=== PATIENT | female | born 1990 | race Caucasian/White ===

== ENCOUNTER → 2016-10-07 | Outpatient (CLI) | payer BC, OTHER ==
[~2016-10-07] MED LIST: /MOXI40TA PO; ACET65TA OR; BENA25TA4 PO; CELE-19 PO; CIPR500T89 PO; COLA100C2 OR; DICL13PA TD; DOXY100T16 PO; DULO30CA PO; FIOR1CAP PO; FLAG500T PO; IBUP600T OR; LANOLIN TOP; MILKSUS OR; MULTIVIT PO; NAPR250T2 PO; OXYC-517 PO; OXYC15TA76 PO; PRENTAB7 PO; ROBA750T4 PO; TIZA4CAP3 PO; TYLE325T5 PO; VICO5TAB PO; XANA0.5T PO; ZOFR4TAB3 PO; [UNRECOGNIZED DRUG - CODE] PO
== END ==
LOC: M SMT 10:43
PROVIDERS: ATTEND Specialist
DX: Z36 Encounter for antenatal screening of mother (principal)

== ENCOUNTER → 2016-12-06 | Outpatient (CLI) | payer BC, OTHER ==
--- NOTE | 2016-12-06 15:24 | REP ---
Clinical: Anatomical evaluation. Comparison: None . Findings: Examination demonstrates a single live intrauterine in transverse (head towards the maternal right side) presentation. motion is identified by technologist. Placenta is noted posteriorly and grade zero without evidence for placenta previa or abruption. Placental tip is 4.5 cm from the closed internal os. Amniotic fluid volume is normal. Cervix measures 3.0 cm in length and appears closed. No evidence for nuchal cord. Gestational age by LMP 19 weeks 0 days with KIM 05/02/2017 . Gestational age by current measurements 19 weeks 2 days with KIM 04/30/2017 . FHR equals 150 beats per minute. BPD 4.4 cm 19 weeks to be HC 16.7 cm 19 weeks 2 days AC 14.3 cm 19 weeks 5 days FL 3.0 cm 19 weeks 1 day HL 3.0 cm 19 weeks 5 days HC/AC ratio 1.17 Estimated weight 289 grams ( 61st percentile). Anatomical assessment demonstrates normal structures including cranium, choroid plexus, cavum, cerebellum/posterior fossa, facial features, lungs, four-chamber heart/ventricular outflow tracts, diaphragm, stomach, cord insertion/three-vessel cord, kidneys/bladder, and extremities. Impression: Single live intrauterine demonstrating appropriate interval growth. Limited evaluation of the spine. Remainder of the anatomical assessment is complete and normal. Signed by Say Llanos MD 12/06/2016 03:15 P
== END ==
LOC: M RAD 12:56
PROVIDERS: ATTEND Specialist
DX: Z34.82 Encounter for supervision of other normal pregnancy, second trimester (principal)

== ENCOUNTER → 2016-12-20 | Outpatient (CLI) | payer BC, OTHER ==
--- NOTE | 2016-12-20 15:53 | REP ---
Obstetric ultrasound for anatomy, follow-up evaluation of the spine: On the prior study of 12/06/2016. anatomy was normal except that the spine was not optimally demonstrated. There is a single intrauterine gestation in a vertex presentation. There is movement and cardiac activity, with a heart rate of 150 beats per minute. The placenta is posterior. There is no placenta previa or abruptio. The placenta demonstrates grade 1 maturity. The amniotic fluid volume subjectively is normal. The cervix is 3.3 cm in length. By the ultrasound today the gestational age is 21 weeks 2 days with an KIM of 04/30/2017. Based on the first ultrasound during this gestation the gestational age is 21 weeks 2 days. Gestational age by LMP is 21 weeks 0 days. weight is 341 grams (0 pounds, 15 ounces). This is the 65th percentile for 21 weeks 0 days. The spine is adequately demonstrated and unremarkable. The remainder of the anatomy is again unremarkable and unchanged from the prior study. Impression: There are no anomalies. Signed by Wesley Galvan MD 12/20/2016 03:45 P
== END ==
LOC: M RAD 14:29
PROVIDERS: ATTEND Specialist
DX: Z36 Encounter for antenatal screening of mother (principal); Z3A.21 21 weeks gestation of pregnancy

== ENCOUNTER → 2017-01-22 | Outpatient (REF) | payer OTHER, BC | LOC: M LAB REF 17:02 | PROVIDERS: ATTEND Advanced Practice Midwife | DX: Z34.82 Encounter for supervision of other normal pregnancy, second trimester (principal) ==

== ENCOUNTER → 2017-02-04 | Outpatient (CLI) | payer BC, OTHER ==
[2017-02-04 19:46] LABS: BASO % 0.2 % (0.0-1.0); EOS # 0.1 K/mm3 (0.0-0.50); EOS % 1.1 % (0.0-3.0); LARGE UNSTAINED CELL # 0.1 K/mm3 (0.0-0.4); LARGE UNSTAINED CELL % 1.3 % (0.0-4.0); LYMPH # 1.5 K/mm3 (1.5-6.5); LYMPH % 21.7 % (24.0-44.0); MEAN CORPUSCULAR HEMOGLOBIN 33.5 pg (27.0-33.0); MEAN CORPUSCULAR HGB CONC 36.1 g/dl (32.0-36.5); MEAN CORPUSCULAR VOLUME 92.7 fl (80.0-96.0); MONO # 0.3 K/mm3 (0.0-0.8); MONO % 4.6 % (0.0-5.0); NEUTROPHILS % 71.1 % (36.0-66.0); PLATELET COUNT, AUTOMATED 235 k/mm3 (150-450); RED CELL DISTRIBUTION WIDTH 12.4 % (11.5-14.5)
== END ==
LOC: M WUC 15:30
PROVIDERS: ATTEND Specialist
DX: Z34.82 Encounter for supervision of other normal pregnancy, second trimester (principal)

== ENCOUNTER → 2017-04-02 | Outpatient (REF) | payer OTHER ==
[~2017-04-02] MED LIST changes: +ACET50TA PO; -CELE-19 PO; +CELE1CAP4 PO; +CYCL10TA PO; +IBUP-1114 PO; -NAPR250T2 PO; +NAPR250T4 PO; +OXYC1SOL3 PO
== END ==
LOC: M LAB REF 13:09
PROVIDERS: ATTEND Specialist
DX: Z34.83 Encounter for supervision of other normal pregnancy, third trimester (principal)

== ENCOUNTER → 2017-04-03 | Outpatient (CLI) | payer OTHER ==
[2017-04-03 18:36] LABS: MEAN CORPUSCULAR HEMOGLOBIN 32.5 pg (27.0-33.0); MEAN CORPUSCULAR HGB CONC 35.4 g/dl (32.0-36.5); MEAN CORPUSCULAR VOLUME 91.7 fl (80.0-96.0); RED CELL DISTRIBUTION WIDTH 11.9 % (11.5-14.5); WHITE BLOOD COUNT 8.6 K/mm3 (4.0-10.0)
[2017-04-03 19:02] LABS: ALT/SGPT 15 U/L (12-78); AST/SGOT 14 U/L (15-37); BILIRUBIN,TOTAL 0.4 MG/DL (0.2-1.0); CREATININE FOR GFR 0.69 MG/DL (0.55-1.02); GLOMERULAR FILTRATION RATE > 60.0 (>60); URIC ACID 4.6 MG/DL (2.6-6.0)
== END ==
LOC: M SMT 13:16
PROVIDERS: ATTEND Specialist
DX: O16.3 Unspecified maternal hypertension, third trimester (principal); Z3A.00 Weeks of gestation of pregnancy not specified

== ENCOUNTER → 2017-04-09 | Outpatient (CLI) | payer BC, OTHER ==
[2017-04-09 08:05] LABS: CREATININE, SERUM 0.6 MG/DL (0.6-1.0)
[2017-04-09 09:03] LABS: CREATININE CLEARANCE, URINE 136.1 ML/MIN (75-115)
== END ==
LOC: M LAB 07:12
PROVIDERS: ATTEND Advanced Practice Midwife
DX: O13.3 Gestational [pregnancy-induced] hypertension without significant proteinuria, third trimester (principal)

== ENCOUNTER 2017-04-14 06:57 | Inpatient (IN) | payer BC, OTHER ==
[2017-04-14] VITALS (25 sets, daily range): BP systolic 100–130; BP diastolic 60–93
[~2017-04-14] VITALS: Ht 160 cm; Wt 76.0 kg
[~2017-04-14 06:57] MED LIST changes: -ACET50TA PO; -CYCL10TA PO; -IBUP-1114 PO; -OXYC1SOL3 PO
[2017-04-14] MEDS ORDERED: OXYC1SOL3 PO (07:12)
[2017-04-14] MEDS ORDERED: CYCL10TA PO (07:13)
[2017-04-14] MEDS ORDERED: LACTATED RINGER'S 1000 ML IV STA (09:46)
[2017-04-14] MEDS ORDERED: LR 1,000 ML IV SCH (09:46)
[2017-04-14] MEDS ORDERED: miSOPROStol 50 MCG 1/2 TAB (S0191) SL ONE ×2 (10:00→15:00)
[2017-04-14 10:47] LABS: MEAN CORPUSCULAR HEMOGLOBIN 32.3 pg (27.0-33.0); MEAN CORPUSCULAR HGB CONC 36.1 g/dl (32.0-36.5); MEAN CORPUSCULAR VOLUME 89.6 fl (80.0-96.0); RED CELL DISTRIBUTION WIDTH 12.1 % (11.5-14.5)
[2017-04-14 11:17] LABS: ALT/SGPT 15 U/L (12-78); AST/SGOT 20 U/L (15-37); BILIRUBIN,TOTAL 0.4 MG/DL (0.2-1.0); CREATININE FOR GFR 0.61 MG/DL (0.55-1.02); GLOMERULAR FILTRATION RATE > 60.0 (>60); URIC ACID 5.4 MG/DL (2.6-6.0)
[2017-04-14] MEDS ORDERED: OXYTOCIN DRIP 30 UNITS in APPROPRIATE DILUENT 1 EA IV SCH (19:45)
--- NOTE | 2017-04-14 21:44 | HPE ---
DATE OF ADMISSION: 04/14/2017 The patient is a 26-year-old 3, para 1-0-1-1 at 39 weeks 3 days gestation with an estimated date of confinement (EDC) of 05/02/2017 by ultrasound. She presented for induction of labor secondary to gestational hypertension. Today she has no complaints. She has been experiencing Daniels Andino contractions, denies rupture of membranes, bleeding, discharge, and says that her last intercourse was not within the last week. She is experiencing movement. LABORATORIES: Blood type O positive, Rubella immune, VDRL nonreactive, hepatitis B antigen negative, hepatitis C antibody nonreactive. Gonorrhea and Chlamydia negative. [place] screening indicated low risk. Diabetes screen 79. Urine culture with no growth. Radiology: OB ultrasound with no anomalies or placental abnormalities detected. PAST OBSTETRICAL HISTORY: 1. In 2011 she delivered a male fetus weighing 7 pounds 11 ounces at 40 and 7 weeks via normal spontaneous vaginal delivery. 2. History of blighted ovum. PAST MEDICAL HISTORY: 1. Ankylosing spondylitis. The patient is taking oxycodone and Flexeril for this. 2. Gestational hypertension. Not taking any medications. MEDICATIONS: - oxycodone 5 mg by mouth every 4 hours as needed - cyclobenzaprine HCL 10 mg tablets three times a day as needed - multivitamins ALLERGIES: NEOMYCIN, rash. SOCIAL HISTORY: The patient is and denies tobacco use. Denies alcohol use. Denies drug use. PHYSICAL EXAMINATION: VITAL SIGNS: Temperature 98.8, pulse is 100, respiratory rate is 18, blood pressure is 113/85. ABDOMEN: Baby is vertex on examination. SVE: Cervix is closed, 50% effaced at negative -2 station. monitor shows 145 beats per minute with moderate variability, accelerations, no decelerations. Category 1 tracing. ASSESSMENT AND PLAN: 1. Intrauterine at 37 and 3 weeks, presents for induction of labor secondary to gestational hypertension. 2. Group B streptococcus (GBS) negative, no antibiotics required. 3. Anticipate spontaneous vaginal delivery. My preceptor for this patient encounter was Dr. Payne. The preceptor was physically present in the building during the encounter and was fully available. As needed, all aspects of the patient interview, examination, medical decision making process, and medical care plan development were reviewed and approved by the preceptor. The preceptor is aware and concurs with the plan as stated in the body of this note and will attest to such by his/her cosignature. CASSY
[2017-04-15] VITALS (15 sets, daily range): BP systolic 113–145; BP diastolic 66–102
[2017-04-15] MEDS ORDERED: BUTORPHANOL 2 MG/ML INJ (J0595) IV ONE (03:30)
[2017-04-15] MEDS ORDERED: PROMETHAZINE INJ 25 MG/ML VIAL (J2550) IV ONE (03:30)
[2017-04-15] MEDS ORDERED: OXYTOCIN DRIP 30 UNITS in APPROPRIATE DILUENT 1 EA IV SCH (05:08)
[2017-04-15] MEDS ORDERED: RHOGAM 300 MCG (1500 IU) INJ (J2790) IM SCH (05:15)
[2017-04-15] MEDS ORDERED: ONDANSETRON 4MG/2ML VIAL (J2405) IV PRN (05:15)
[2017-04-15] MEDS ORDERED: MEASLES,MUMPS,RUBELLA VACCINE INJ (MMR-II) (90707) SC SCH (05:15)
[2017-04-15] MEDS ORDERED: DIBUCAINE 1% OINTMENT 30GM TOP PRN (05:15)
[2017-04-15] MEDS ORDERED: ACETAMINOPHEN 500 MG TAB PO PRN (05:15)
[2017-04-15] MEDS ORDERED: PROMETHAZINE 25 MG TAB PO PRN (05:15)
[2017-04-15] MEDS: IBUPROFEN 800 MG TAB PO PRN ×3 (05:43→21:44)
[2017-04-15] MEDS ORDERED: LIDOCAINE 1% MDV INJ 50 ML VIAL SC ONE (07:30)
[2017-04-15] MEDS: DOCUSATE SODIUM 100 MG CAP PO SCH ×2 (08:22→21:43)
[2017-04-15] MEDS: PRENATAL VITAMINS CHEWABLE TABLET PO SCH (08:22)
[2017-04-16 06:39] VITALS: BP 134/94
[2017-04-16] MEDS: IBUPROFEN 800 MG TAB PO PRN (06:47)
[2017-04-16] MEDS: PRENATAL VITAMINS CHEWABLE TABLET PO SCH (09:00)
[2017-04-16] MEDS: DOCUSATE SODIUM 100 MG CAP PO SCH (09:00)
[2017-04-16] MEDS ORDERED: IBUP-1114 PO (10:00)
[2017-04-16] MEDS ORDERED: ACET50TA PO (10:00)
== END 2017-04-16 11:20 | disposition home or self-care (01) | DRG 560 ==
LOC: M LDI 06:57 → M OBS 04-15 07:05
PROVIDERS: ADMIT Obstetrics & Gynecology; ATTEND Obstetrics & Gynecology
PROC: 3E0DXGC Introduction of Other Therapeutic Substance into Mouth and Pharynx, External Approach (ICD-10-PCS; 2017-04-14)
PROC: 10E0XZZ Delivery of Products of Conception, External Approach (ICD-10-PCS; principal; 2017-04-15)
PROC: 10907ZC Drainage of Amniotic Fluid, Therapeutic from Products of Conception, Via Natural or Artificial Opening (ICD-10-PCS; 2017-04-15)
PROC: 0HQ9XZZ Repair Perineum Skin, External Approach (ICD-10-PCS; 2017-04-15)
DX: O13.4 Gestational [pregnancy-induced] hypertension without significant proteinuria, complicating childbirth (principal); O70.0 First degree perineal laceration during delivery; Z37.0 Single live birth; Z3A.39 39 weeks gestation of pregnancy; M54.9 Dorsalgia, unspecified; Z79.899 Other long term (current) drug therapy; Z88.8 Allergy status to other drugs, medicaments and biological substances; O26.893 Other specified pregnancy related conditions, third trimester

== ENCOUNTER → 2017-09-02 | Outpatient (CLI) | payer BC, OTHER ==
[~2017-09-02] MED LIST changes: +ACET50TA PO; +CYCL10TA PO; +IBUP-1114 PO; +ISOVUE-370 76% 100ML VIAL (Q9967) As Ordered ONE; +OXYC1SOL3 PO
--- NOTE | 2017-09-03 14:34 | REP ---
Clinical: Pulmonary nodule. Technique: Axial contrast enhanced images from the thoracic inlet to the upper abdomen using 100 ml Isovue 370 intravenous contrast material with coronal and sagittal re-formations. Comparison: 05/23/2014. Findings: The previously identified 15 mm soft tissue density in the medial right sulcus has decreased in size to roughly 9 mm and current findings suggest small chronic scarring. The bilateral lung gonzalez are otherwise well aerated, symmetric and clear. No further consolidation, nodule or mass lesion. No pleural effusion/reaction. No pneumothorax. Tracheobronchial tree is patent. No adenopathy. Mediastinum demonstrates normal thoracic aorta, pulmonary vasculature and heart/pericardium. No pericardial effusion. Limited upper abdomen demonstrates normal bilateral adrenal glands. Surrounding musculoskeletal structures are intact. Impression: 1. Small residual area of scarring in the medial right sulcus without evidence for significant or active pathology. 2. No acute mediastinal or pleuroparenchymal process appreciated. Signed by Say Llanos MD 09/03/2017 01:34 A
== END ==
LOC: M RAD 09:47
PROVIDERS: ATTEND Physician Assistant
DX: R91.8 Other nonspecific abnormal finding of lung field (principal)
CPT/HCPCS: 71260; Q9967

== ENCOUNTER → 2018-01-25 | Outpatient (CLI) | payer BC, OTHER ==
[2018-01-25 13:20] LABS: ANION GAP 4 MEQ/L (8-16); BLOOD UREA NITROGEN 12 MG/DL (7-18); CALCIUM LEVEL 8.9 MG/DL (8.5-10.1); CARBON DIOXIDE LEVEL 32 MEQ/L (21-32); CHLORIDE LEVEL 104 MEQ/L (98-107); CREATININE FOR GFR 0.84 MG/DL (0.55-1.30); FREE T4 0.82 NG/DL (0.76-1.46); GLOMERULAR FILTRATION RATE > 60.0 (>60); GLUCOSE, FASTING 89 MG/DL (70-100); POTASSIUM SERUM 4.2 MEQ/L (3.5-5.1); SODIUM LEVEL 140 MEQ/L (136-145); THYROID STIMULATING HORMONE 0.893 uIU/ML (0.358-3.740)
== END ==
LOC: M LAB 12:21
DX: E66.8 Other obesity (principal)
CPT/HCPCS: 84443

== ENCOUNTER → 2018-05-06 | Outpatient (REF) | payer BC, OTHER ==
[2018-05-13 11:07] LABS: SUMMARY SEE SEPARATE REPORT
== END ==
LOC: M LAB REF 16:57
DX: M45.9 Ankylosing spondylitis of unspecified sites in spine (principal)
CPT/HCPCS: 80307

== ENCOUNTER → 2018-08-03 | Outpatient (CLI) | payer BC, OTHER | LOC: M RAD 16:21 | DX: N64.4 Mastodynia (principal) ==

== ENCOUNTER → 2018-08-14 | Outpatient (REF) | payer OTHER ==
[2018-08-14 18:05] LABS: CPK CREATINE PHOSPHOKINASE 77 U/L (26-192)
[2018-08-19 00:06] LABS: ACETYLCHOLINE RCPTOR BINDING A < 0.03 nmol/L (0.00-0.24)
== END ==
LOC: M LABDRAW1 17:07
DX: M62.81 Muscle weakness (generalized) (principal)
CPT/HCPCS: 82550

== ENCOUNTER → 2018-12-09 | Outpatient (CLI) | payer OTHER ==
[~2018-12-09] MED LIST changes: -ACET50TA PO; -ISOVUE-370 76% 100ML VIAL (Q9967) As Ordered ONE; +MAPA500T2 PO; +TIZA4CAP PO; -TIZA4CAP3 PO
[2018-12-09 12:27] LABS: BASO % 0.5 % (0.0-1.0); EOS # 0.1 10^3/uL (0.0-0.50); EOS % 1.7 % (0.0-3.0); HEMATOCRIT 42.1 % (36.0-47.0); HEMOGLOBIN 14.3 g/dl (12.0-15.5); LYMPH # 1.9 10^3/uL (1.5-6.5); LYMPH % 31.8 % (24.0-44.0); MEAN CORPUSCULAR VOLUME 88.4 fl (80.0-96.0); MONO # 0.4 10^3/uL (0.0-0.8); MONO % 7.2 % (0.0-5.0); NEUTROPHILS # 3.5 10^3/uL (1.8-7.7); NEUTROPHILS % 58.6 % (36.0-66.0); PLATELET COUNT, AUTOMATED 268 10^3/uL (150-450); RED BLOOD COUNT 4.76 10^6/uL (4.00-5.40)
[2018-12-09 12:59] LABS: ALT/SGPT 18 U/L (12-78); BILIRUBIN,TOTAL 0.7 MG/DL (0.2-1.0); BLOOD UREA NITROGEN 10 MG/DL (7-18); CARBON DIOXIDE LEVEL 29 MEQ/L (21-32); CHLORIDE LEVEL 102 MEQ/L (98-107); CHOLESTEROL LEVEL 228 MG/DL (<200); CHOLESTEROL RISK RATIO 3.737 (<5); CREATININE FOR GFR 0.74 MG/DL (0.55-1.30); GLOMERULAR FILTRATION RATE > 60.0 (>60); GLUCOSE, FASTING 94 MG/DL (70-100); HDL CHOLESTEROL 61 MG/DL (>40); LDL CHOLESTEROL 139 MG/DL (<100); NON-HDL-C 167 MG/DL; POTASSIUM SERUM 4.5 MEQ/L (3.5-5.1); SODIUM LEVEL 137 MEQ/L (136-145); TRIGLYCERIDES LEVEL 138 MG/DL (<150)
[2018-12-09 13:00] LABS: ALBUMIN 4.3 GM/DL (3.2-5.2); FREE T4 0.96 NG/DL (0.76-1.46); TOTAL PROTEIN 6.9 GM/DL (6.4-8.2)
== END ==
LOC: M WUC 10:22
PROVIDERS: ATTEND Physician Assistant
DX: F41.1 Generalized anxiety disorder (principal); Z82.49 Family history of ischemic heart disease and other diseases of the circulatory system; M45.9 Ankylosing spondylitis of unspecified sites in spine

== ENCOUNTER → 2020-07-13 | Outpatient (CLI) | payer BC, OTHER ==
[~2020-07-13] MED LIST changes: -/MOXI40TA PO; +AVEL1TAB2 PO; +CYCL-707 PO; -CYCL10TA PO; -DOXY100T16 PO; +DOXY100T27 PO; -DULO30CA PO; +DULO30CA9 PO; +ONDA-228 PO; +OXYC-1 PO; -OXYC15TA76 PO; -ZOFR4TAB3 PO
--- NOTE | 2020-07-13 20:41 | REP ---
INDICATION: ANKYLOSING SPONDYLITIS OF UNSPECIFIED SITES IN SPINE COMPARISON: None. TECHNIQUE: AP, lateral, and swimmers views. FINDINGS: Alignment and kyphosis is maintained. Vertebral bodies intact. No acute fracture / compression injury or subluxation. No degenerative changes. Paravertebral soft tissues are normal. IMPRESSION: Normal thoracic spine series. <Electronically signed by Say Llanos > 07/13/20 [id number]
== END ==
LOC: M WUC 10:08
PROVIDERS: ATTEND Physician Assistant
DX: M54.9 Dorsalgia, unspecified (principal)

== ENCOUNTER → 2020-12-19 | Outpatient (CLI) | payer BC, OTHER ==
[~2020-12-19] MED LIST changes: +NAPR-849 PO; -NAPR250T4 PO
--- NOTE | 2020-12-19 08:00 | REP ---
INDICATION: LT UPPER ARM MASS UPPER EXT WITH OUT CONTRAST. COMPARISON: None. TECHNIQUE: CT of the left humerus without IV contrast. FINDINGS: BB markers are placed at the superior and inferior margin of the palpable lump. At the location of the skin markers there is no focal or diffuse skin thickening. No skin masses are identified. There are no subcutaneous masses. No masses in the underlying musculature. No skeletal mass. There are no focal fluid collections. No inflammation or induration. IMPRESSION: No evidence of mass, skin thickening, inflammation or fluid collection in the left upper arm, particularly in the area labeled by the skin markers. MRI might be considered for further evaluation. <Electronically signed by Wesley Galvan > 12/19/20 [id number]
== END ==
LOC: M RAD 07:19
PROVIDERS: ATTEND Physician Assistant
DX: D48.5 Neoplasm of uncertain behavior of skin (principal)

== ENCOUNTER → 2021-01-18 | Outpatient (CLI) | payer BC, OTHER ==
--- NOTE | 2021-01-18 16:01 | REP ---
INDICATION: PAIN IN LEFT ARM, MASS?. COMPARISON: Comparison MRI study of the cervical spine is from March 09, 2013.. TECHNIQUE: Sagittal and axial T1 and T2-weighted scans are acquired in the usual fashion with and without fat saturation. Sequences include spin echo, turbo spin-echo, and STIR imaging sequences. FINDINGS: There is slight straightening of the normal cervical lordosis. Cervical vertebral body heights are preserved. Alignment is normal. Cervical cord is normal in course, caliber, and signal intensity on T1 and T2 weighted scans. Axial and sagittal images at C2-3 level demonstrate minimal right posterior disc bulging, less prominent than on the prior study. No spinal stenosis or foraminal narrowing is seen. At the C3-4, there is minimal diffuse disc bulging effacing the ventral subarachnoid space. No spinal stenosis, cord compression, or foraminal narrowing is seen. At C4-C5 there is mild disc space narrowing and decreased signal intensity. Diffuse disc bulging is seen effacing the ventral subarachnoid space. There is early uncovertebral spurring on the right at C4-5. This is somewhat more prominent than on the prior study. At C5-6, the disc is narrowed as well. There is diffuse disc bulging and posterior osteophytic ridging. This effaces the ventral subarachnoid space but does not compress the cord. No neural foraminal narrowing is seen. At C6-C7 and C7-T1, no abnormality is visible. IMPRESSION: Degenerative disc disease at C5-6 and C4-5 and to a lesser extent C3-4. The C4-5 uncovertebral spurring on the right is more prominent than on the prior study. The degenerative disc changes at C5-6 are slightly more prominent as well. No cord compression is seen. <Electronically signed by Jovany Amezcua > 01/18/21 [id number]
--- NOTE | 2021-01-18 17:04 | REP ---
INDICATION: PAIN IN LEFT ARM, MASS?. COMPARISON: CT 12/19/2020. TECHNIQUE: Multiple sequences obtained in the axial, coronal and sagittal planes. FINDINGS: At the site of the palpable lump in the lateral left upper arm images are acquired. The palpable lump is marked on the skin. The underlying soft tissues demonstrate normal signal with no focal cystic or solid nodule. The study is somewhat limited without IV contrast. No abnormal soft tissue signal is seen. The underlying visualized humerus demonstrates normal bone marrow signal with an intact cortex. IMPRESSION: Negative noncontrast MRI left upper arm at the site of the palpable lump. <Electronically signed by Wesley Jimenez > 01/18/21 [id number]
== END ==
LOC: M PLARAD 13:48
PROVIDERS: ATTEND Physical Medicine & Rehabilitation
DX: M79.602 Pain in left arm (principal); M50.21 Other cervical disc displacement, high cervical region; M50.221 Other cervical disc displacement at C4-C5 level; M50.222 Other cervical disc displacement at C5-C6 level; M50.223 Other cervical disc displacement at C6-C7 level

== ENCOUNTER → 2021-03-26 | Outpatient (CLI) | payer BC, OTHER | LOC: M RAD 14:00 | PROVIDERS: ATTEND Physician Assistant | DX: E04.1 Nontoxic single thyroid nodule (principal) ==

== ENCOUNTER → 2021-03-28 | Outpatient (CLI) | payer OTHER, BC ==
[2021-03-28 16:47] LABS: BASO # 0.1 10^3/uL (0.0-0.2); BASO % 0.9 % (0.0-1.0); EOS # 0.1 10^3/uL (0.0-0.5); EOS % 1.8 % (0.0-3.0); HEMATOCRIT 39.7 % (36.0-47.0); HEMOGLOBIN 13.6 g/dl (12.0-15.5); LYMPH # 1.9 10^3/uL (1.5-5.0); LYMPH % 34.2 % (24.0-44.0); MEAN CORPUSCULAR HEMOGLOBIN 30.6 pg (27.0-33.0); MEAN CORPUSCULAR HGB CONC 34.3 g/dl (32.0-36.5); MEAN CORPUSCULAR VOLUME 89.4 fl (80.0-96.0); MONO # 0.4 10^3/uL (0.0-0.8); MONO % 6.4 % (2.0-8.0); NEUTROPHILS # 3.1 10^3/uL (1.5-8.5); NEUTROPHILS % 56.3 % (36.0-66.0); PLATELET COUNT, AUTOMATED 276 10^3/uL (150-450); RED BLOOD COUNT 4.44 10^6/uL (4.00-5.40); WHITE BLOOD COUNT 5.4 10^3/uL (4.0-10.0)
[2021-03-28 17:41] LABS: ALBUMIN 3.7 GM/DL (3.2-5.2); ALT/SGPT 16 U/L (12-78); BILIRUBIN,TOTAL 0.7 MG/DL (0.2-1.0); BLOOD UREA NITROGEN 9 MG/DL (7-18); CALCIUM LEVEL 8.6 MG/DL (8.5-10.1); CARBON DIOXIDE LEVEL 29 MEQ/L (21-32); CHLORIDE LEVEL 103 MEQ/L (98-107); CREATININE FOR GFR 0.75 MG/DL (0.55-1.30); FOLATE 8.4 NG/ML; FREE T4 0.99 NG/DL (0.76-1.46); GLOMERULAR FILTRATION RATE > 60.0 (>60); GLUCOSE, FASTING 117 MG/DL (70-100); SODIUM LEVEL 138 MEQ/L (136-145); THYROID STIMULATING HORMONE 0.881 uIU/ML (0.358-3.740); TOTAL PROTEIN 6.5 GM/DL (6.4-8.2); VITAMIN B12 LEVEL 393 PG/ML
== END ==
LOC: M WUC 10:24
PROVIDERS: ATTEND Physician Assistant
DX: R53.83 Other fatigue (principal)

== ENCOUNTER → 2021-11-02 | Outpatient (CLI) | payer OTHER, BC ==
[2021-11-02 16:05] LABS: BASO % 0.6 % (0.0-1.0); EOS # 0.1 10^3/uL (0.0-0.5); EOS % 2.1 % (0.0-3.0); HEMATOCRIT 39.1 % (36.0-47.0); HEMOGLOBIN 13.8 g/dl (12.0-15.5); LYMPH # 1.7 10^3/uL (1.5-5.0); LYMPH % 35.6 % (24.0-44.0); MEAN CORPUSCULAR HEMOGLOBIN 30.7 pg (27.0-33.0); MEAN CORPUSCULAR HGB CONC 35.3 g/dl (32.0-36.5); MEAN CORPUSCULAR VOLUME 86.9 fl (80.0-96.0); MONO # 0.3 10^3/uL (0.0-0.8); NEUTROPHILS # 2.7 10^3/uL (1.5-8.5); NEUTROPHILS % 55.5 % (36.0-66.0); PLATELET COUNT, AUTOMATED 283 10^3/uL (150-450); WHITE BLOOD COUNT 4.8 10^3/uL (4.0-10.0)
[2021-11-02 16:42] LABS: ALBUMIN 3.9 GM/DL (3.2-5.2); ALT/SGPT 18 U/L (12-78); BILIRUBIN,TOTAL 0.8 MG/DL (0.2-1.0); BLOOD UREA NITROGEN 12 MG/DL (7-18); CARBON DIOXIDE LEVEL 29 MEQ/L (21-32); CHLORIDE LEVEL 106 MEQ/L (98-107); CHOLESTEROL LEVEL 216 MG/DL (<200); CHOLESTEROL RISK RATIO 3.223 (<5); CREATININE FOR GFR 0.75 MG/DL (0.55-1.30); FREE T4 1.04 NG/DL (0.76-1.46); GLOMERULAR FILTRATION RATE > 60.0 (>60); GLUCOSE, FASTING 100 MG/DL (70-100); HDL CHOLESTEROL 67 MG/DL (>40); LDL CHOLESTEROL 133 MG/DL (<100); NON-HDL-C 149 MG/DL; SODIUM LEVEL 140 MEQ/L (136-145); TRIGLYCERIDES LEVEL 78 MG/DL (<150)
== END ==
LOC: M WUC 11:08
PROVIDERS: ATTEND Family Medicine
DX: E04.9 Nontoxic goiter, unspecified (principal); E78.2 Mixed hyperlipidemia

== ENCOUNTER → 2021-12-07 | Outpatient (CLI) | payer BC, OTHER ==
[2021-12-07 12:11] LABS: BASO % 0.7 % (0.0-1.0); EOS # 0.3 10^3/uL (0.0-0.5); EOS % 5.9 % (0.0-3.0); HEMATOCRIT 39.3 % (36.0-47.0); LYMPH # 1.9 10^3/uL (1.5-5.0); MEAN CORPUSCULAR HEMOGLOBIN 30.5 pg (27.0-33.0); MEAN CORPUSCULAR HGB CONC 35.6 g/dl (32.0-36.5); MEAN CORPUSCULAR VOLUME 85.6 fl (80.0-96.0); MONO # 0.4 10^3/uL (0.0-0.8); MONO % 6.8 % (2.0-8.0); NEUTROPHILS # 3.1 10^3/uL (1.5-8.5); NEUTROPHILS % 53.4 % (36.0-66.0); PLATELET COUNT, AUTOMATED 288 10^3/uL (150-450); RED BLOOD COUNT 4.59 10^6/uL (4.00-5.40); WHITE BLOOD COUNT 5.8 10^3/uL (4.0-10.0)
[2021-12-07 12:32] LABS: ERYTHROCYTE SEDIMENTATION RATE 9 mm/hr (0-20)
[2021-12-07 12:55] LABS: ALBUMIN 3.8 GM/DL (3.2-5.2); ALT/SGPT 19 U/L (12-78); BILIRUBIN,TOTAL 0.7 MG/DL (0.2-1.0); BLOOD UREA NITROGEN 15 MG/DL (7-18); CALCIUM LEVEL 8.7 MG/DL (8.5-10.1); CARBON DIOXIDE LEVEL 28 MEQ/L (21-32); CHLORIDE LEVEL 106 MEQ/L (98-107); CREATININE FOR GFR 0.75 MG/DL (0.55-1.30); GLOMERULAR FILTRATION RATE > 60.0 (>60); GLUCOSE, FASTING 101 MG/DL (70-100); POTASSIUM SERUM 3.9 MEQ/L (3.5-5.1); SODIUM LEVEL 138 MEQ/L (136-145); TOTAL PROTEIN 6.7 GM/DL (6.4-8.2)
[2021-12-07 12:56] LABS: C REACTIVE PROTEIN QUANTITATIV 0.42 MG/DL (0.00-0.30); FOLATE 10.4 NG/ML; FOLLICLE STIMULATING HORMONE 4.3 mIU/mL; FREE T4 1.08 NG/DL (0.76-1.46); IRON (FE) 101 UG/DL (50-170); LUTEINIZING HORMONE 8.1 mIU/mL; MAGNESIUM LEVEL 2.1 MG/DL (1.8-2.4); PERCENT SATURATION 34.1 % (13.2-45.0); RHEUMATOID FACTOR QUANT < 10.0 IU/ML (<15.0); TOTAL IRON BINDING CAPACITY 296 UG/DL (250-450); VITAMIN B12 LEVEL 398 PG/ML
== END ==
LOC: M WUC 09:37
PROVIDERS: ATTEND Nurse Practitioner Adult Health
DX: R53.83 Other fatigue (principal)

== ENCOUNTER → 2022-02-06 | Outpatient (CLI) | payer BC, OTHER | LOC: M RAD 10:55 | PROVIDERS: ATTEND Nurse Practitioner Adult Health | DX: R94.39 Abnormal result of other cardiovascular function study (principal) ==

== ENCOUNTER → 2022-02-22 | Outpatient (CLI) | payer BC, OTHER | LOC: M CARPUL 09:42 | PROVIDERS: ATTEND Nurse Practitioner Adult Health | DX: R06.02 Shortness of breath (principal); I49.1 Atrial premature depolarization; R94.39 Abnormal result of other cardiovascular function study ==

== ENCOUNTER → 2023-03-13 | Outpatient (CLI) | payer BC, OTHER | LOC: M RAD 11:05 | PROVIDERS: ATTEND Physician Assistant | DX: E04.1 Nontoxic single thyroid nodule (principal) ==

== ENCOUNTER → 2023-05-23 | Outpatient (CLI) | payer BC, OTHER ==
[2023-05-23 19:08] LABS: BASO % 0.6 % (0.0-1.0); EOS # 0.1 10^3/uL (0.0-0.5); EOS % 1.5 % (0.0-3.0); HEMATOCRIT 37.8 % (36.0-47.0); LYMPH # 2.2 10^3/uL (1.5-5.0); LYMPH % 47.1 % (24.0-44.0); MEAN CORPUSCULAR HEMOGLOBIN 30.5 pg (27.0-33.0); MEAN CORPUSCULAR HGB CONC 34.4 g/dl (32.0-36.5); MEAN CORPUSCULAR VOLUME 88.7 fl (80.0-96.0); MONO # 0.3 10^3/uL (0.0-0.8); NEUTROPHILS # 2.1 10^3/uL (1.5-8.5); NEUTROPHILS % 43.8 % (36.0-66.0); PLATELET COUNT, AUTOMATED 288 10^3/uL (150-450); RED BLOOD COUNT 4.26 10^6/uL (4.00-5.40); WHITE BLOOD COUNT 4.7 10^3/uL (4.0-10.0)
[2023-05-23 19:24] LABS: ERYTHROCYTE SEDIMENTATION RATE 5 mm/hr (0-20)
[2023-05-23 19:34] LABS: URIC ACID 4.1 MG/DL (3.1-7.8)
[2023-05-23 19:35] LABS: C REACTIVE PROTEIN QUANTITATIV < 0.40 MG/DL (<1.0)
[2023-05-23 19:37] LABS: RHEUMATOID FACTOR QUANT 6.4 IU/ML (<14)
[2023-05-23 20:39] LABS: ALKALINE PHOSPHATASE 57 U/L (46-116); ALT/SGPT 14 U/L (7.0-40); AST/SGOT < 8 U/L (<34); BILIRUBIN,TOTAL 0.6 MG/DL (0.3-1.2); BLOOD UREA NITROGEN 14 MG/DL (9-23); CALCIUM LEVEL 8.8 MG/DL (8.5-10.1); CARBON DIOXIDE LEVEL 28 MMOL/L (20-31); CHLORIDE LEVEL 103 MMOL/L (98-107); CHOLESTEROL LEVEL 191 MG/DL (<200); CHOLESTEROL RISK RATIO 3.21 (<5); CREATININE FOR GFR 0.71 MG/DL (0.55-1.30); FOLLICLE STIMULATING HORMONE 7.5 mIU/ML; FREE T4 1.07 NG/DL (0.89-1.76); GLOMERULAR FILTRATION RATE > 60.0 (>60); GLUCOSE, FASTING 120 MG/DL (60-100); HDL CHOLESTEROL 59.5 MG/DL (>40); LDL CHOLESTEROL 112.7 MG/DL (<100); LUTEINIZING HORMONE 6.3 mIU/ML; NON-HDL-C 131.5 MG/DL; POTASSIUM SERUM 3.9 MMOL/L (3.5-5.1); SODIUM LEVEL 135 MMOL/L (136-145); THYROID STIMULATING HORMONE 1.545 uIU/ML (0.55-4.78); TOTAL PROTEIN 6.9 G/DL (5.7-8.2); TRIGLYCERIDES LEVEL 94 MG/DL (<150)
== END ==
LOC: M WUC 11:57
PROVIDERS: ATTEND Physician Assistant
DX: E78.2 Mixed hyperlipidemia (principal); Z13.29 Encounter for screening for other suspected endocrine disorder; M45.9 Ankylosing spondylitis of unspecified sites in spine

== ENCOUNTER → 2024-02-19 | Outpatient (CLI) | payer BC | LOC: M PLAIMG 08:49 | PROVIDERS: ATTEND Physician Assistant | DX: M45.9 Ankylosing spondylitis of unspecified sites in spine (principal); M50.30 Other cervical disc degeneration, unspecified cervical region ==